=== PATIENT | female | born 1950 | race Caucasian/White ===

== ENCOUNTER 2018-09-13 19:00 | Emergency (ER) | payer BC, OTHER ==
[~2018-09-13] VITALS: Ht 167.6 cm; Wt 90.7 kg
[~2018-09-13 19:00] MED LIST: ATORVASTATIN PO; MULTIVITAMINS PO; PROZAC20 MG/5 ML; PROZAC40 MG PO; [UNRECOGNIZED DRUG - MIXTURE] NASAL
[2018-09-13] MEDS ORDERED: AMLODIPINE BESYL5 M1 PO (19:26)
== END 2018-09-13 20:59 | disposition home or self-care (01) ==
LOC: ER 19:00
DX: S01.01XA Laceration without foreign body of scalp, initial encounter (principal); S01.112A Laceration without foreign body of left eyelid and periocular area, initial encounter; W10.9XXA Fall (on) (from) unspecified stairs and steps, initial encounter; Y93.89 Activity, other specified; Y92.89 Other specified places as the place of occurrence of the external cause; Y99.8 Other external cause status; F32.9 Major depressive disorder, single episode, unspecified; E78.00 Pure hypercholesterolemia, unspecified; Z96.653 Presence of artificial knee joint, bilateral